=== PATIENT | female | born 2000 ===

== ENCOUNTER 2022-11-27 13:28 | Observation (INO) | payer SELFPAY ==
[2022-11-27] MEDS ORDERED: Sodium Chloride 0.9% 1,000 ML IV ONE (15:45)
[2022-11-27 16:35] LABS: BASOPHILS PERCENT AUTO 0.2 % (0.0-1.5); EOSINOPHILS ABSOLUTE AUTO 0.7 K/uL (0.0-0.7); EOSINOPHILS PERCENT AUTO 8.5 % (0.0-7.0); HEMOGLOBIN 7.6 g/dL (12.0-16.0); LYMPHOCYTES PERCENT AUTO 22.4 % (16.0-40.0); MEAN CORPUSCULAR HEMOGLOBIN 18.1 pg (27.0-32.0); MEAN CORPUSCULAR HGB CONC 27.1 g/dL (31.0-37.0); MONOCYTES ABSOLUTE AUTO 0.6 K/uL (0.0-0.8); MONOCYTES PERCENT AUTO 6.5 % (0.0-15.0); NEUTROPHILS ABSOLUTE AUTO 5.4 K/uL (1.4-5.7); NEUTROPHILS PERCENT AUTO 62.4 % (48.0-80.0); NRBC ABSOLUTE 0 K/uL; PLATELET COUNT,PLT 239 K/uL (150-400); RED BLOOD CELL COUNT 4.19 M/uL (4.30-5.90); WHITE BLOOD CELL COUNT,WBC 8.72 K/uL (4.0-11.0)
[2022-11-27 16:45] LABS: BILIRUBIN,URINE NEGATIVE (NEGATIVE); COLOR,URINE YELLOW; GLUCOSE,URINE NEGATIVE (NEGATIVE); KETONES,URINE NEGATIVE (NEGATIVE); LEUKOCYTE ESTERASE,URINE TRACE (NEGATIVE); NITRITE,URINE NEGATIVE (NEGATIVE); OCCULT BLOOD,URINE NEGATIVE (NEGATIVE); PROTEIN,URINE NEGATIVE (NEGATIVE); UROBILINOGEN,URINE 0.2 EU/dL (<2.0)
[2022-11-27 16:48] LABS: MEAN CORPUSCULAR VOLUME 66.8 fL (80.0-98.0)
[2022-11-27 16:59] LABS: APPEARANCE,URINE HAZY
[2022-11-27 17:00] LABS: BACTERIA,URINE FEW (NEGATIVE); EPITHELIAL CELLS,URINE FEW (NONE-FEW); RBC,URINE 0-1 (0-2/HPF)
[2022-11-27 17:08] LABS: A/G RATIO 1.1 (0.9-1.6); ALBUMIN 3.9 g/dL (3.4-5.0); BILIRUBIN TOTAL 0.3 mg/dL (0.2-1.0); CALCIUM 8.8 mg/dL (8.5-10.1); CARBON DIOXIDE,CO2 26.2 mmol/L (21.0-32.0); CREATININE 0.5 mg/dL (0.6-1.0); EST CRCL DRUG DOSING (CG) 126.77 mL/min; POTASSIUM,K 3.5 mmol/L (3.5-5.1); PROTEIN TOTAL,TP 7.3 g/dL (6.4-8.2)
[2022-11-28 08:09] LABS: BASOPHILS PERCENT AUTO 0.2 % (0.0-1.5); EOSINOPHILS ABSOLUTE AUTO 0.8 K/uL (0.0-0.7); EOSINOPHILS PERCENT AUTO 9.1 % (0.0-7.0); HEMATOCRIT 35.9 % (36.0-46.0); HEMOGLOBIN 10.5 g/dL (12.0-16.0); LYMPHOCYTES ABSOLUTE AUTO 1.5 K/uL (0.6-2.4); LYMPHOCYTES PERCENT AUTO 16.7 % (16.0-40.0); MEAN CORPUSCULAR HEMOGLOBIN 20.6 pg (27.0-32.0); MEAN CORPUSCULAR HGB CONC 29.2 g/dL (31.0-37.0); MEAN CORPUSCULAR VOLUME 70.4 fL (80.0-98.0); MONOCYTES ABSOLUTE AUTO 0.8 K/uL (0.0-0.8); MONOCYTES PERCENT AUTO 8.4 % (0.0-15.0); NEUTROPHILS ABSOLUTE AUTO 5.9 K/uL (1.4-5.7); NEUTROPHILS PERCENT AUTO 65.6 % (48.0-80.0); NRBC ABSOLUTE 0 K/uL; PLATELET COUNT,PLT 189 K/uL (150-400)
[2022-11-28 08:16] LABS: ALBUMIN 3.2 g/dL (3.4-5.0); BILIRUBIN TOTAL 0.9 mg/dL (0.2-1.0); CALCIUM 8.1 mg/dL (8.5-10.1); CARBON DIOXIDE,CO2 25.4 mmol/L (21.0-32.0); CREATININE 0.4 mg/dL (0.6-1.0); EST CRCL DRUG DOSING (CG) 158.46 mL/min; POTASSIUM,K 3.9 mmol/L (3.5-5.1); PROTEIN TOTAL,TP 6.3 g/dL (6.4-8.2)
[2022-11-28] MEDS ORDERED: Polyethylene Glycol 3350 Powder 17 GM Packet PO ONE (08:43)
[2022-11-28] MEDS ORDERED: Acetaminophen 500 MG Tab PO ONE (08:43)
== END 2022-11-28 12:24 | disposition home or self-care (01) ==
LOC: MW.ED 13:28 → UNDOADMOB 20:48 → MW.MS 20:48
PROVIDERS: ADMIT Family Medicine; ATTEND Family Medicine
DX: S09.90XA Unspecified injury of head, initial encounter (principal); R55 Syncope and collapse; D64.9 Anemia, unspecified; F17.210 Nicotine dependence, cigarettes, uncomplicated; Z20.822 Contact with and (suspected) exposure to COVID-19; W19.XXXA Unspecified fall, initial encounter
CPT/HCPCS: 36415; 36430; 70450; 71045; 72125; 80053; 81001; 82947; 84702; 85025; 86850; 86900; 86901; 86920; 86921; 86922; 87086; 87635; 93005; 93246; 96360; 99285; A9270; G0378; J7030; P9016; 93010; 99283; U0002

== ENCOUNTER 2023-03-06 09:54 | Emergency (ER) | payer SELFPAY | END 2023-03-06 11:17 | disposition home or self-care (01) | LOC: MW.ED 09:54 | DX: S63.501A Unspecified sprain of right wrist, initial encounter (principal); X50.1XXA Overexertion from prolonged static or awkward postures, initial encounter | CPT/HCPCS: 73110-26-RT; 73110-RT; 99283 ==

== ENCOUNTER 2023-11-07 20:37 | Emergency (ER) | payer SELFPAY ==
[2023-11-07 21:02] LABS: BASOPHILS ABSOLUTE AUTO 0.04 K/uL (0.00-0.20); BASOPHILS PERCENT AUTO 0.4 % (0.0-1.0); EOSINOPHILS ABSOLUTE AUTO 0.51 K/uL (0.00-0.45); EOSINOPHILS PERCENT AUTO 5.7 % (0.0-6.0); HEMATOCRIT 33.6 % (37.0-47.0); HEMOGLOBIN 10.3 g/dL (12.0-16.0); IMMATURE GRAN ABSOLUTE AUTO 0.01 K/uL (0.00-0.05); IMMATURE GRAN PERCENT AUTO 0.1 % (0.0-0.4); LYMPHOCYTES ABSOLUTE AUTO 1.87 K/uL (1.00-4.80); LYMPHOCYTES PERCENT AUTO 20.8 % (24.0-44.0); MEAN CORPUSCULAR HGB CONC 30.7 g/dL (32.0-36.0); MEAN PLATELET VOLUME 10.7 fL (9.4-12.3); MONOCYTES ABSOLUTE AUTO 0.66 K/uL (0.00-0.80); MONOCYTES PERCENT AUTO 7.3 % (0.0-8.0); NEUTROPHILS ABSOLUTE AUTO 5.92 K/uL (1.80-7.70); NEUTROPHILS PERCENT AUTO 65.7 % (41.0-71.0); PLATELET COUNT,PLT 310 K/uL (150-400); RED BLOOD CELL COUNT 4.48 M/uL (4.10-5.30); WHITE BLOOD CELL COUNT,WBC 9.01 K/uL (3.9-11.3)
[2023-11-07 21:30] LABS: A/G RATIO 1.1 (0.9-1.6); ALANINE AMINOTRANSFERASE,ALT 19 IU/L (14-63); ALKALINE PHOSPHATASE 58 U/L (46-116); ASPARTATE AMNIOTRANSFERASE,AST 13 IU/L (15-37); BILIRUBIN TOTAL 0.3 mg/dL (0.2-1.0); BLOOD UREA NITROGEN,BUN 7 mg/dL (7.0-18.0); CALCIUM 8.9 mg/dL (8.5-10.1); CARBON DIOXIDE,CO2 26.3 mmol/L (21.0-32.0); CHLORIDE,CL 102 mmol/L (98-107); CREATININE 0.5 mg/dL (0.6-1.0); EST CRCL DRUG DOSING (CG) 125.69 mL/min; GLUCOSE RANDOM 100 mg/dL (74-106); POTASSIUM,K 3.1 mmol/L (3.5-5.1); PROTEIN TOTAL,TP 7.7 g/dL (6.4-8.2); SODIUM,NA 139 mmol/L (136-145)
[2023-11-07 21:33] LABS: ESTIMATED GFR 135 mL/min (>60)
[2023-11-07] MEDS: Sodium Chloride 0.9% 1,000 ML IV STA (21:46)
[2023-11-07] MEDS: Potassium Chloride 20 MEQ Tab.ER PO STA (21:46)
[2023-11-07] MEDS: Sodium Chloride 0.9% 10 ML Syringe FLUSH PRN (21:47)
[2023-11-07] MEDS: Sodium Chloride 0.9% 2.5 ML Syringe FLUSH PRN (21:48)
[2023-11-07 21:54] LABS: PERCENT FE SATURATION 4.23 % (20-55)
== END 2023-11-07 23:02 | disposition home or self-care (01) ==
LOC: MW.ED 20:37
DX: D50.8 Other iron deficiency anemias (principal); R55 Syncope and collapse; Z75.8 Other problems related to medical facilities and other health care
CPT/HCPCS: 36415; 71045; 80053; 82728; 83550; 84484; 84703; 85025; 93005; 96360; 99285; A9270; J3490; J7030; 93010